=== PATIENT | female | born 1975 | race Two or more races ===

== ENCOUNTER 2019-09-01 13:45 | Emergency (ER) | payer OTHER ==
--- NOTE | 2019-09-01 13:54 | EDM.PDOC ---
ED HPI GENERAL MEDICAL PROBLEM - General Stated Complaint: DEHYDRATION Time Seen by Provider: 09/01/19 13:47 Source of Information: Reports: Patient History Limitations: Reports: No Limitations - History of Present Illness INITIAL COMMENTS - FREE TEXT/NARRATIVE: HISTORY AND PHYSICAL: History of present illness: Patient is a 43-year-old female presents to the emergency room with complaints of left flank pain 2 days and irregular vaginal bleeding x3 weeks. States her last normal LMP was on August 06; she had developed light spotting since that time. Denies any vaginal discharge or concerns of or STDs. 2 days ago she developed mid back pain that is now in the midflank area. Subjective fever; but has not actually taken her temperature. Patient denies any headache, change in vision, syncope or near syncope. Denies any chest pain, back pain, shortness of breath or cough. Denies any abdominal pain, nausea, vomiting, diarrhea, constipation or dysuria. Has not noted any blood in urine or stool. Patient has been eating and drinking appropriately. Review of systems: As per history of present illness and below otherwise all systems reviewed and negative. Past medical history: As per history of present illness and as reviewed below otherwise noncontributory. Surgical history: As per history of present illness and as reviewed below otherwise noncontributory. Social history: See social history for further information Family history: As per history of present illness and as reviewed below otherwise noncontributory. Physical exam: General: Well developed and well nourished 43-year-old female. Alert and oriented. Nontoxic appearing and in no acute distress. HEENT: Atraumatic, normocephalic, pupils equal and reactive bilaterally, negative for conjunctival pallor or scleral icterus, mucous membranes moist, trachea midline. No drooling or trismus noted. No meningeal signs. No hot potato voice noted. Lungs: Clear to auscultation, breath sounds equal bilaterally, chest nontender. Heart: S1S2, regular rate and rhythm without overt murmur Abdomen: Soft, nondistended, diffuse tenderness throughout. Negative for masses. Mild left sided costovertebral tenderness. Pelvis: Stable nontender. Skin: Intact, warm, dry. No lesions or rashes noted. Extremities: Atraumatic, moves all extremities per self without difficulty or deficits, negative for cords or calf pain. Neurovascular unremarkable. Neuro: Awake, alert, oriented. Cranial nerves II through XII unremarkable. Cerebellum unremarkable. Motor and sensory unremarkable throughout. Exam nonfocal. Notes: Serum lab work is unremarkable. Patient does have a urinary tract infection. CT of the abdomen and pelvis shows no acute findings. We discussed her dysfunctional uterine bleeding which she describes as faint spotting, she will follow-up with her MANAGER PRACTICE on this. Rocephin given while here for the UTI. We reviewed signs and symptoms that would prompt her to return to the emergency room. Prescription and supportive care measures were reviewed and discussed. Voices understanding and is agreeable to plan of care. Denies any further questions or concerns at this time. Diagnostics: CBC, CMP, Lipase, UA, HCGU, CT abd/pelvis Therapeutics: IV fluids, Toradol, Rocephin Prescription: Cipro Pyridium Impression: Dysfunctional Uterine Bleeding UTI Plan: 1. Increase your oral fluids. Take the medications as prescribed. 2. Tylenol and/or ibuprofen as needed for pain management. 3. Please follow-up with your MANAGER PRACTICE or primary care provider for further evaluation of the dysfunctional uterine bleeding. 4. Return to the ED as needed and as discussed. Definitive disposition and diagnosis as appropriate pending reevaluation and review of above. bilteral back Pain Score (Numeric/FACES): 7 - Related Data Allergies Allergy/AdvReac Type Severity Reaction Status Date / Time No Known Allergies Allergy Verified 09/01/19 13:54 Home Meds: Home Meds . [No Known Home Meds] 09/01/19 [History] ED ROS GENERAL - Review of Systems Review Of Systems: ROS reveals no pertinent complaints other than HPI. ED EXAM, GENERAL - Physical Exam Exam: See Below (See dictation) Course - Vital Signs Last Recorded V/S: Last Vital Signs Temp 98.9 F 09/01/19 13:55 Pulse 115 H 09/01/19 13:55 Resp 18 09/01/19 13:55 BP 114/76 09/01/19 13:55 Pulse Ox 97 09/01/19 13:55 - Orders/Labs/Meds Orders: Active Orders 24 hr Category Date Time Status CULTURE URINE [RM] Stat Lab 09/01/19 14:03 Received Sodium Chloride 0.9% [Normal Saline] 1,000 ml Med 09/01/19 16:00 Active IV ASDIRECTED Medication Orders Sodium Chloride (Normal Saline) 1,000 mls @ 125 mls/hr IV ASDIRECTED TIFFANI Last Admin: 09/01/19 16:08 Dose: 125 mls/hr Labs: Laboratory Tests 09/01/19 09/01/19 09/01/19 Range/Units 14:03 14:03 14:22 WBC 10.83 (4.0-11.0) K/uL RBC 4.84 (4.30-5.90) M/uL Hgb 13.0 (12.0-16.0) g/dL Hct 39.6 (36.0-46.0) % MCV 81.8 (80.0-98.0) fL MCH 26.9 L (27.0-32.0) pg MCHC 32.8 (31.0-37.0) g/dL RDW Std Deviation 45.9 (28.0-62.0) fl RDW Coeff of Love 15 (11.0-15.0) % Plt Count 325 (150-400) K/uL MPV 10.80 (7.40-12.00) fL Neut % (Auto) 80.2 H (48.0-80.0) % Lymph % (Auto) 9.9 L (16.0-40.0) % Fisher % (Auto) 9.7 (0.0-15.0) % Eos % (Auto) 0.0 (0.0-7.0) % Baso % (Auto) 0.2 (0.0-1.5) % Neut # (Auto) 8.7 H (1.4-5.7) K/uL Lymph # (Auto) 1.1 (0.6-2.4) K/uL Fisher # (Auto) 1.1 H (0.0-0.8) K/uL Eos # (Auto) 0.0 (0.0-0.7) K/uL Baso # (Auto) 0.0 (0.0-0.1) K/uL Nucleated RBC % 0.0 /100WBC Nucleated RBCs # 0 K/uL Sodium (136-145) mmol/L Potassium (3.5-5.1) mmol/L Chloride (98-107) mmol/L Carbon Dioxide (21.0-32.0) mmol/L BUN (7.0-18.0) mg/dL Creatinine (0.6-1.0) mg/dL Est Cr Clr Drug Dosing mL/min Estimated GFR (MDRD) ml/min Glucose (74-106) mg/dL Calcium (8.5-10.1) mg/dL Total Bilirubin (0.2-1.0) mg/dL AST (15-37) IU/L ALT (14-63) IU/L Alkaline Phosphatase (46-116) U/L Total Protein (6.4-8.2) g/dL Albumin (3.4-5.0) g/dL Globulin (2.6-4.0) g/dL Albumin/Globulin Ratio (0.9-1.6) Lipase (73-393) U/L Urine Color YELLOW Urine Appearance SLT CLOUDY Urine pH 7.5 (5.0-8.0) Ur Specific Harrell 1.015 (1.001-1.035) Urine Protein NEGATIVE (NEGATIVE) mg/dL Urine Glucose (UA) NEGATIVE (NEGATIVE) mg/dL Urine Ketones NEGATIVE (NEGATIVE) mg/dL Urine Occult Blood LARGE H (NEGATIVE) Urine Nitrite NEGATIVE (NEGATIVE) Urine Bilirubin NEGATIVE (NEGATIVE) Urine Urobilinogen 1.0 (<2.0) EU/dL Ur Leukocyte Esterase SMALL H (NEGATIVE) Urine RBC 3-5 (0-2/HPF) Urine WBC 15-20 (0-5/HPF) Ur Epithelial Cells MODERATE (NONE-FEW) Urine Bacteria FEW (NEGATIVE) Urine Mucus LIGHT (NONE-MOD) Urine HCG, Qual NEGATIVE (NEGATIVE) 09/01/19 09/01/19 Range/Units 14:22 14:22 WBC (4.0-11.0) K/uL RBC (4.30-5.90) M/uL Hgb (12.0-16.0) g/dL Hct (36.0-46.0) % MCV (80.0-98.0) fL MCH (27.0-32.0) pg MCHC (31.0-37.0) g/dL RDW Std Deviation (28.0-62.0) fl RDW Coeff of Love (11.0-15.0) % Plt Count (150-400) K/uL MPV (7.40-12.00) fL Neut % (Auto) (48.0-80.0) % Lymph % (Auto) (16.0-40.0) % Fisher % (Auto) (0.0-15.0) % Eos % (Auto) (0.0-7.0) % Baso % (Auto) (0.0-1.5) % Neut # (Auto) (1.4-5.7) K/uL Lymph # (Auto) (0.6-2.4) K/uL Fisher # (Auto) (0.0-0.8) K/uL Eos # (Auto) (0.0-0.7) K/uL Baso # (Auto) (0.0-0.1) K/uL Nucleated RBC % /100WBC Nucleated RBCs # K/uL Sodium 136 (136-145) mmol/L Potassium 3.7 (3.5-5.1) mmol/L Chloride 98 (98-107) mmol/L Carbon Dioxide 24.2 (21.0-32.0) mmol/L BUN 7 (7.0-18.0) mg/dL Creatinine 1.0 (0.6-1.0) mg/dL Est Cr Clr Drug Dosing 77.37 mL/min Estimated GFR (MDRD) > 60.0 ml/min Glucose 96 (74-106) mg/dL Calcium 8.8 (8.5-10.1) mg/dL Total Bilirubin 0.6 (0.2-1.0) mg/dL AST 16 (15-37) IU/L ALT 16 (14-63) IU/L Alkaline Phosphatase 58 (46-116) U/L Total Protein 8.1 (6.4-8.2) g/dL Albumin 3.5 (3.4-5.0) g/dL Globulin 4.6 H (2.6-4.0) g/dL Albumin/Globulin Ratio 0.8 L (0.9-1.6) Lipase 249 (73-393) U/L Urine Color Urine Appearance Urine pH (5.0-8.0) Ur Specific Harrell (1.001-1.035) Urine Protein (NEGATIVE) mg/dL Urine Glucose (UA) (NEGATIVE) mg/dL Urine Ketones (NEGATIVE) mg/dL Urine Occult Blood (NEGATIVE) Urine Nitrite (NEGATIVE) Urine Bilirubin (NEGATIVE) Urine Urobilinogen (<2.0) EU/dL Ur Leukocyte Esterase (NEGATIVE) Urine RBC (0-2/HPF) Urine WBC (0-5/HPF) Ur Epithelial Cells (NONE-FEW) Urine Bacteria (NEGATIVE) Urine Mucus (NONE-MOD) Urine HCG, Qual (NEGATIVE) Meds: Medications Generic Name Dose Route Start Last Admin Trade Name Freq PRN Reason Stop Dose Admin Sodium Chloride 1,000 mls @ 125 mls/hr 09/01/19 16:00 09/01/19 16:08 Normal Saline IV 125 mls/hr ASDIRECTED TIFFANI Administration Discontinued Medications Generic Name Dose Route Start Last Admin Trade Name Freq PRN Reason Stop Dose Admin Sodium Chloride 1,000 mls @ 999 mls/hr 09/01/19 14:00 09/01/19 14:29 Normal Saline IV 09/01/19 15:00 999 mls/hr STAT ONE Administration Ceftriaxone Sodium/Dextrose 1 50 mls @ 100 mls/hr 09/01/19 15:28 09/01/19 16: 08 gm/ Premix IV 09/01/19 15:57 100 mls/hr ONETIME ONE Administration Ketorolac Tromethamine 30 mg 09/01/19 14:07 09/01/19 14:33 Toradol IVPUSH 09/01/19 14:08 30 mg ONETIME ONE Administration Departure - Departure Time of Disposition: 16:08 Disposition: Home, Self-Care 01 Clinical Impression: Dysfunctional uterine bleeding UTI (urinary tract infection) Qualifiers: Urinary tract infection type: acute cystitis Hematuria presence: with hematuria Qualified Code(s): N30.01 - Acute cystitis with hematuria - Discharge Information Instructions: Urinary Tract Infection, Adult, [id number] Referrals: PCP,None [Primary Care Provider] - Additional Instructions: The following information is given to patients seen in the emergency department who are being discharged to home. This information is to outline your options for follow-up care. We provide all patients seen in our emergency department with a follow-up referral. The need for follow-up, as well as the timing and circumstances, are variable depending upon the specifics of your emergency department visit. If you don't have a primary care physician on staff, we will provide you with a referral. We always advise you to contact your personal physician following an emergency department visit to inform them of the circumstance of the visit and for follow-up with them and/or the need for any referrals to a consulting specialist. The emergency department will also refer you to a specialist when appropriate. This referral assures that you have the opportunity for follow-up care with a specialist. All of these measure are taken in an effort to provide you with optimal care, which includes your follow-up. Under all circumstances we always encourage you to contact your private physician who remains a resource for coordinating your care. When calling for follow-up care, please make the office aware that this follow-up is from your recent emergency room visit. If for any reason you are refused follow-up, please contact the [facility] at and asked to speak to the emergency department charge nurse. [facility] [address] [place] [address] [id number] [address] [id number] 1. Increase your oral fluids. Take the medications as prescribed. 2. Tylenol and/or ibuprofen as needed for pain management. 3. Please follow-up with your MANAGER PRACTICE or primary care provider for further evaluation of the dysfunctional uterine bleeding. 4. Return to the ED as needed and as discussed. - My Orders Last 24 Hours: My Active Orders 09/01/19 14:03 CULTURE URINE [RM] Stat 09/01/19 16:00 Sodium Chloride 0.9% [Normal Saline] 1,000 ml IV ASDIRECTED - Assessment/Plan Last 24 Hours: My Active Orders 09/01/19 14:03 CULTURE URINE [RM] Stat 09/01/19 16:00 Sodium Chloride 0.9% [Normal Saline] 1,000 ml IV ASDIRECTED
[2019-09-01] MEDS ORDERED: Sodium Chloride 0.9% 1,000 ML IV ONE (14:00)
[2019-09-01] MEDS ORDERED: Ketorolac 30 MG/ML SDV IVPUSH ONE (14:07)
[2019-09-01 15:08] LABS: CARBON DIOXIDE,CO2 24.2 mmol/L (21.0-32.0); CHLORIDE,CL 98 mmol/L (98-107); GLUCOSE RANDOM 96 mg/dL (74-106); POTASSIUM,K 3.7 mmol/L (3.5-5.1); SODIUM,NA 136 mmol/L (136-145)
[2019-09-01 15:15] LABS: BLOOD UREA NITROGEN,BUN 7 mg/dL (7.0-18.0)
[2019-09-01] MEDS ORDERED: cefTRIAXone 1 GM in Premix Bag 1 BAG IV ONE (15:28)
[2019-09-01] MEDS ORDERED: Sodium Chloride 0.9% 1,000 ML IV SCH (16:00)
--- NOTE | 2019-09-01 16:01 | CT ---
EXAM DATE: 09/01/19 PATIENT'S AGE: 43 CT abdomen and pelvis Technique: Multiple axial sections were obtained from above the dome of the diaphragm inferiorly through the pubic symphysis. Intravenous and oral contrast not utilized. Findings: Ureters are very difficult to see. Both kidneys show slight malrotation with slight anterolateral pointing renal pelvis which is an incidental finding. I do not see a definite ureteral stone. No renal calculi are seen. Visualized lung bases show nothing acute. Noncontrast appearance of the liver and spleen shows no discrete abnormality. Adrenal glands show no nodule. Previous stomach surgery is noted. Pancreas not optimally seen but shows no discrete abnormality. Gallbladder contains no calcified gallstones. Aorta shows no aneurysm. No retroperitoneal adenopathy or mesenteric abnormalities are seen. No pelvic mass or adenopathy is identified. Appendix is felt to be visualized and is normal. Slight increased stool is noted throughout the colon. Bone window settings were reviewed which shows disc space narrowing and vacuum phenomenon of the L5-S1 disc. Impression: 1. Poorly seen ureters. No definite ureteral dilatation or ureteral stone is appreciated. 2. Nothing acute is definitely appreciated on CT study of the abdomen and pelvis performed as a ureteral stone protocol. Note: If strong clinical suspicions remain for left ureteral stone, formal intravenous urogram study could be considered. Diagnostic code #1 MTDD
== END 2019-09-01 16:40 | disposition home or self-care (01) ==
LOC: MW.ED 13:45
DX: N93.8 Other specified abnormal uterine and vaginal bleeding (principal); N30.01 Acute cystitis with hematuria
CPT/HCPCS: 36415; 74176; 80053; 81001; 81025; 83690; 85025; 87086; 87088; 87186; 96361; 96365; 99284; J0696; J1885; J7040

== ENCOUNTER 2024-11-16 08:55 | Emergency (ER) | payer OTHER ==
[2024-11-16] MEDS ORDERED: Sodium Chloride 0.9% 10 ML Syringe FLUSH PRN (09:03)
[2024-11-16] MEDS ORDERED: Sodium Chloride 0.9% 2.5 ML Syringe FLUSH PRN (09:03)
[2024-11-16] MEDS: Sodium Chloride 0.9% 1,000 ML IV ONE (09:22)
[2024-11-16 09:28] LABS: BASOPHILS ABSOLUTE AUTO 0.04 K/uL (0.00-0.20); BASOPHILS PERCENT AUTO 0.4 % (0.0-1.0); EOSINOPHILS ABSOLUTE AUTO 0.07 K/uL (0.00-0.45); EOSINOPHILS PERCENT AUTO 0.8 % (0.0-6.0); HEMOGLOBIN 11.6 g/dL (12.0-16.0); IMMATURE GRAN ABSOLUTE AUTO 0.02 K/uL (0.00-0.05); IMMATURE GRAN PERCENT AUTO 0.2 % (0.0-0.4); LYMPHOCYTES ABSOLUTE AUTO 2.51 K/uL (1.00-4.80); MEAN CORPUSCULAR HGB CONC 32.2 g/dL (32.0-36.0); MEAN CORPUSCULAR VOLUME 80.7 fL (83.0-99.0); MEAN PLATELET VOLUME 10.5 fL (9.4-12.3); MONOCYTES ABSOLUTE AUTO 0.71 K/uL (0.00-0.80); MONOCYTES PERCENT AUTO 7.9 % (0.0-8.0); NEUTROPHILS ABSOLUTE AUTO 5.61 K/uL (1.80-7.70); NEUTROPHILS PERCENT AUTO 62.7 % (41.0-71.0); PLATELET COUNT,PLT 521 K/uL (150-400); RED BLOOD CELL COUNT 4.46 M/uL (4.10-5.30); WHITE BLOOD CELL COUNT,WBC 8.96 K/uL (3.9-11.3)
[2024-11-16 09:36] LABS: APPEARANCE,URINE SLT CLOUDY; BILIRUBIN,URINE NEGATIVE (NEGATIVE); COLOR,URINE OTHER; GLUCOSE,URINE NEGATIVE (NEGATIVE); KETONES,URINE NEGATIVE (NEGATIVE); LEUKOCYTE ESTERASE,URINE SMALL (NEGATIVE); NITRITE,URINE NEGATIVE (NEGATIVE); OCCULT BLOOD,URINE TRACE-INTACT (NEGATIVE); PROTEIN,URINE NEGATIVE (NEGATIVE); UROBILINOGEN,URINE 0.2 EU/dL (<2.0)
[2024-11-16 09:45] LABS: EPITHELIAL CELLS,URINE MODERATE (NONE-FEW); RBC,URINE NONE SEEN (0-2/HPF); WBC,URINE 20-30 (0-5/HPF)
[2024-11-16 09:46] LABS: BACTERIA,URINE 1+ (NEGATIVE); MUCUS,URINE LIGHT (NONE-MOD)
[2024-11-16] MEDS: Nitrofurantoin Monohydrate/Macrocrystalline 100 MG Cap PO ONE (10:00)
[2024-11-16] MEDS: Alum Hydrox/Mag Hydrox/Simeth 15 ML, Metoclopramide 5 MG, Lidocaine 2% 5 ML PO ONE (10:05)
[2024-11-16] MEDS: Ketorolac 30 MG/ML SDV IVPUSH ONE (10:05)
[2024-11-16 10:10] LABS: A/G RATIO 0.7 (0.9-1.6); ALANINE AMINOTRANSFERASE,ALT 17 IU/L (14-63); ALBUMIN 3.2 g/dL (3.4-5.0); ALKALINE PHOSPHATASE 127 U/L (46-116); ASPARTATE AMNIOTRANSFERASE,AST 21 IU/L (15-37); BILIRUBIN TOTAL 0.4 mg/dL (0.2-1.0); BLOOD UREA NITROGEN,BUN 11 mg/dL (7.0-18.0); CALCIUM 8.9 mg/dL (8.5-10.1); CARBON DIOXIDE,CO2 23.8 mmol/L (21.0-32.0); CHLORIDE,CL 102 mmol/L (98-107); ESTIMATED GFR 70 mL/min (>60); GLUCOSE RANDOM 102 mg/dL (74-106); LIPASE 92 U/L (16-77); POTASSIUM,K 4.2 mmol/L (3.5-5.1); PROTEIN TOTAL,TP 7.7 g/dL (6.4-8.2); SODIUM,NA 136 mmol/L (136-145); TSH ULTRASENSITIVE 11.13 uIU/mL (0.36-3.74)
[2024-11-16 10:56] LABS: T3 FREE 2.19 pg/mL (2.18-3.98); T4 FREE 0.87 ng/dL (0.76-1.46)
[2024-11-16] MEDS: Iopamidol 755 MG/ML 500 ML Multipack Bottle IVPUSH STA (11:11)
== END 2024-11-16 12:16 | disposition home or self-care (01) ==
LOC: MW.ED 08:55
DX: N30.01 Acute cystitis with hematuria (principal); E03.9 Hypothyroidism, unspecified; K76.9 Liver disease, unspecified; Z79.899 Other long term (current) drug therapy; Z75.8 Other problems related to medical facilities and other health care
CPT/HCPCS: 36415; 74177; 76705; 80053; 81001; 81025; 83690; 84439; 84443; 84481; 85025; 87086; 87088; 87186; 96361; 96374; 99285; A9270; J1885; J7030; Q9967; 99284